=== PATIENT | male | born 1965 | race Caucasian/White ===

== ENCOUNTER 2019-05-01 10:31 | Outpatient (CLI) | payer OTHER | END 2019-05-01 23:59 | disposition home or self-care (01) | LOC: RAD 10:31 | PROVIDERS: ATTEND Nurse Practitioner Family | DX: M51.17 Intervertebral disc disorders with radiculopathy, lumbosacral region (principal); M48.07 Spinal stenosis, lumbosacral region; M89.38 Hypertrophy of bone, other site; G83.4 Cauda equina syndrome | CPT/HCPCS: 72148 ==

== ENCOUNTER 2019-05-19 14:37 | Outpatient (CLI) | payer OTHER ==
[~2019-05-19 14:37] MED LIST: CYCL-1 PO; HYDR-4384 PO
== END 2019-05-19 23:59 | disposition home or self-care (01) ==
LOC: RAD 14:37
PROVIDERS: ATTEND Orthopaedic Surgery Orthopaedic Surgery of the Spine
DX: M51.16 Intervertebral disc disorders with radiculopathy, lumbar region (principal); M48.07 Spinal stenosis, lumbosacral region; M41.86 Other forms of scoliosis, lumbar region; M53.3 Sacrococcygeal disorders, not elsewhere classified; M89.38 Hypertrophy of bone, other site
CPT/HCPCS: 72148

== ENCOUNTER 2019-06-17 12:55 | Observation (INO) | payer OTHER ==
[2019-06-15 14:46] LABS: BASOPHILS # (AUTO) 0.1 X10'3 (0-0.2); BASOPHILS % (AUTO) 0.9 % (0-1); EOSINOPHILS # (AUTO) 0.1 X10'3 (0-0.9); LYMPHOCYTES # (AUTO) 2.3 X10'3 (1.1-4.8); LYMPHOCYTES % (AUTO) 36.7 % (21-51); MEAN CORPUSCULAR HEMOGLOBIN 29.9 PG (27.0-31.0); MEAN CORPUSCULAR HGB CONC 33.5 g/dL (33.0-36.5); MEAN CORPUSCULAR VOLUME 89.2 FL (78-98); MONOCYTES # (AUTO) 0.4 X10'3 (0-0.9); MONOCYTES % (AUTO) 6.8 % (2-12); NEUTROPHILS # (AUTO) 3.4 X10'3 (1.8-7.7); NEUTROPHILS % (AUTO) 54.6 % (42-75); PRE OP HEMATOCRIT 44.7 % (42.0-52.0); PRE OP PLATELET COUNT 213 X10'3 (140-440); RED BLOOD COUNT 5.01 X10'6 (4.70-6.10); RED CELL DISTRIBUTION WIDTH 14.1 % (11.5-14.5)
[2019-06-15 14:53] LABS: CLARITY,URINE CLEAR (Clear); COLOR,URINE YELLOW (Yellow); GLUCOSE, URINE NEGATIVE (Neg); KETONES,URINE NEGATIVE (Neg); LEUKOCYTE ESTERASE ,URINE NEGATIVE (Neg); NITRITES, URINE NEGATIVE (Neg); OCCULT BLOOD,URINE NEGATIVE (Neg); PROTEIN,URINE NEGATIVE (Neg); UA COLLECTION TYPE CLN CATCH MIDSTREAM; UROBILINOGEN,URINE 0.2 E.U/dL (0.2-1.0)
[2019-06-15 14:57] LABS: PRE OP INR 1.1 INR; PRE OP PROTIME 10.9 SECONDS (9.0-12.0)
[2019-06-15 15:05] LABS: ALBUMIN 3.8 G/DL (3.4-5.0); ALBUMIN/GLOBULIN RATIO 1.1 (1.1-1.5); ALKALINE PHOSPHATASE 72 IU/L (46-116); BLOOD UREA NITROGEN 15 MG/DL (7-18); BUN/CREATININE RATIO 14.7 (5.4-32.0); CALCIUM 8.8 MG/DL (8.5-10.1); CHLORIDE 103 MMOL/L (99-107); CREATININE 1.02 MG/DL (0.60-1.10); PRE OP ALT 45 U/L (30-65); PRE OP ANION GAP 8 (8-16); PRE OP AST 16 U/L (10-37); PRE OP BILIRUB, TOTAL 0.2 MG/DL (0.0-1.0); PRE OP GLUCOSE 95 MG/DL (70-104); PRE OP POTASSIUM 4.1 MMOL/L (3.4-5.1); PRE OP SODIUM 140 MMOL/L (135-145); TOTAL CARBON DIOXIDE 29.2 MMOL/L (24-32); TOTAL PROTEIN 7.4 G/DL (6.4-8.2); eGFR 76 ML/MIN
[~2019-06-17] VITALS: Ht 170.2 cm; Wt 90.7 kg
[2019-06-17] VITALS (18 sets, daily range): BP systolic 91–163; BP diastolic 64–108
[~2019-06-17 12:55] MED LIST changes: -CYCL-1 PO; -HYDR-4384 PO; +LEVO175T2 PO
[2019-06-17] MEDS ORDERED: VANCOMYCIN INJ 1000 MG in NORMAL SALINE 250ml IV.SOLN IV ONE (13:00)
[2019-06-17] MEDS ORDERED: famotidine 20mg tablet PO ONE (13:00)
[2019-06-17] MEDS ORDERED: cefazolin/dext.iso 2gm/100 ML IV ONE (13:00)
[2019-06-17] MEDS ORDERED: ringers solution, lacted 1,000 ML IV SCH ×2 (13:00→16:43)
[2019-06-17] MEDS ORDERED: methylPREDNISolone sod succ 125mg/2ml vial ONE (13:33)
[2019-06-17] MEDS ORDERED: ceFAZolin 1000mg inj ONE (13:34)
[2019-06-17] MEDS ORDERED: gelatin sponge, absorbable (Gelfoam 100) sponge TP ONE ×2 (13:34→15:55)
[2019-06-17] MEDS ORDERED: Thrombin (Bovine) 5,000 unit vial TP ONE (13:34)
[2019-06-17] MEDS ORDERED: sevoflurane 250ml liquid IH ONE (15:01)
[2019-06-17] MEDS ORDERED: acetaminophen 1000 MG/100ml vial IV ONE (15:01)
[2019-06-17] MEDS ORDERED: fentaNYL /PF 50mcg/ml 5ml ampule ONE (15:04)
[2019-06-17] MEDS ORDERED: MIDAZolam 5mg/5ml vial ONE (15:04)
[2019-06-17] MEDS ORDERED: proCHLORperazine 10 MG/2 ml inj IV PRN (16:45)
[2019-06-17] MEDS ORDERED: ondansetron/PF 4mg/2ml inj IV PRN (16:45)
[2019-06-17] MEDS ORDERED: morphine 4 MG/ML inj SYRINge IV PRN ×2 (16:45)
[2019-06-17] MEDS ORDERED: meperidine/PF 25mg/ml syringe IV PRN ×3 (16:45)
[2019-06-17] MEDS ORDERED: BUPIVAcaine/PF 2.5 mg/ml (0.25%) 30ml vial ONE (17:20)
[2019-06-17] MEDS ORDERED: rocuronium 10mg/ml inj IV ONE (18:01)
[2019-06-17] MEDS ORDERED: glycopyrrolate 0.2mg/ml inj ONE (18:01)
[2019-06-17] MEDS ORDERED: neostigmine methylsulfate 1 MG/ML 10ml vial ONE (18:01)
[2019-06-17] MEDS ORDERED: dexamethasone sod phosphate 4mg/ml inj. ONE (18:02)
[2019-06-17] MEDS ORDERED: propofol inj 20 ML IV ONE ×3 (18:02)
[2019-06-17] MEDS ORDERED: ondansetron/PF 4mg/2ml inj ONE (18:02)
--- NOTE | 2019-06-17 18:10 | NUR ---
Received from OR via ORTHO BED , accompanied by Anesthesiologist DR LEBLANC and report given by Anesthesiolgist. PT PLACE ON O2 AND MONITOR, AROUSES EASILY, S/P LUMBAR 4-5 AND LUMBAR 5-S1 LAMINECTOMY, DISCECTOMY, GENERAL ANESTHESIA, RATES PAIN AT 3/10, HAS STRONG BILAT PLANTAR FLEXION, AND SLIGHTLY WEAKER LEFT DORSIFLEXTION, STATES HAS TINGLING IN LEFT GREAT TOE, AND MILD PAIN AT INCISION AREA, WILL CONT TO ASSESS.
[2019-06-17] MEDS ORDERED: diazepam 5mg tablet PO PRN (19:00)
[2019-06-17] MEDS ORDERED: acetaminophen 325mg tablet PO PRN (19:00)
[2019-06-17] MEDS ORDERED: CADD PCA waste documentation MC SCH (19:00)
[2019-06-17] MEDS ORDERED: naloxone 0.4 mg/ml inj IV PRN (19:00)
[2019-06-17] MEDS: HYDROmorphone/NS 1 mg/ml CADD 50 ML IV SCH ×3 (19:10→23:00)
--- NOTE | 2019-06-17 19:25 | NUR ---
Report called to receiving nurse. Transferred via ORTHO BED TO ROOM [id number] Belongings . Special Issues communicated to receiving nurse.
--- NOTE | 2019-06-17 20:05 | NUR ---
Received from OR via ORTHO BED , accompanied by Anesthesiologist DR LEBLANC and report given by Anesthesiolgist. PT AROUSES EASILY, PLACED ON O2 AND MONITOR, S/P ORIF LEFT HIP, SAB WITH VERY SMALL AMOUNT OF PROPOFOL TO KEEP PT "STILL", PT IS TRYING TO SIT UP IN BED AND WIGGLE AROUND, SIDE RAILS UP X4, REPEATED ATTEMPTS TO EXPLAIN TO PT IMPORTANCE OF TRYING TO REMAIN CALM, PT STATING, "GET ME OUT OF THIS PLACE SO I CAN GET SOMETHING TO EAT! I'M HUNGRY!", LEFT LATERAL THIGH DRESSING PRESENTS WITH SOME SANGUINOUS DRAINAGE, O.R. NURSE IN TO REINFORCE DRESSING. WILL CONT TO ASSESS. PT DOES KEEP PULLING AT ALL HIS LEADS AND WIRES, AND O2 MASK, WILL TRY A BEST ATTEMPT TO KEEP THEM ON.
--- NOTE | 2019-06-17 21:17 | NUR ---
PLEASE DISREGUARD 2005 ENTRY DOCUMANTATION MEANT FOR DIFFERENT PT
[2019-06-17] MEDS: normal saline 1000ml 1,000 ML IV SCH (23:07)
[2019-06-18] MEDS: HYDROmorphone/NS 1 mg/ml CADD 50 ML IV SCH ×3 (01:00→05:00)
[2019-06-18 02:00] VITALS: BP 119/76
[2019-06-18 02:46] VITALS: BP 119/76
[2019-06-18] MEDS: normal saline 1000ml 1,000 ML IV SCH (04:45)
[2019-06-18 06:10] VITALS: BP 133/83
[2019-06-18] MEDS ORDERED: HYDROcodone/acetaminophen 10/325mg tab PO PRN ×2 (06:45)
[2019-06-18] MEDS ORDERED: levoTHYROXINE 175mcg tablet PO SCH (07:00)
[2019-06-18 10:00] VITALS: BP 137/78
== END 2019-06-18 10:15 | disposition home or self-care (01) ==
LOC: PAS 12:55 → ORTHO 4S 21:01
PROVIDERS: ADMIT Orthopaedic Surgery Orthopaedic Surgery of the Spine; ATTEND Orthopaedic Surgery Orthopaedic Surgery of the Spine
DX: M51.36 Other intervertebral disc degeneration, lumbar region (principal); M51.26 Other intervertebral disc displacement, lumbar region; M51.17 Intervertebral disc disorders with radiculopathy, lumbosacral region; M21.372 Foot drop, left foot; G89.29 Other chronic pain; E03.9 Hypothyroidism, unspecified
CPT/HCPCS: 36415; 63048; 71046; 72100; 76000; 80053; 81003; 82948; 84443; 85025; 85610; 85730; 86885; 86900; 86901; 93005; 96374; 96375; 97110; 97116; 97161; 97530; 99284; G0378; J0131; J0690; J1100; J1170; J1644; J2175; J2250; J2405; J2704; J2710; J2930; J3010; J3370; J3490; J7030; J7120; A4215; A4618; A6196; A7000

== ENCOUNTER 2019-09-06 23:20 | Emergency (ER) | payer OTHER ==
[~2019-09-06] VITALS: Ht 170.2 cm; Wt 86.0 kg
[~2019-09-06 23:20] MED LIST changes: +LIDOcaine 1% 30ml preserv. free vial ONE
[2019-09-07] MEDS ORDERED: TETanus/Pertussis (Acell)/Diphther VAC/PF (Tdap-Adult) 0.5ml syringe IM ONE (00:50)
[2019-09-07 01:03] VITALS: BP 117/78
== END 2019-09-07 01:04 | disposition home or self-care (01) ==
LOC: ER 23:21
DX: S61.012A Laceration without foreign body of left thumb without damage to nail, initial encounter (principal); E03.9 Hypothyroidism, unspecified; G89.29 Other chronic pain; Z79.899 Other long term (current) drug therapy; W29.0XXA Contact with powered kitchen appliance, initial encounter; Y93.89 Activity, other specified; Y92.89 Other specified places as the place of occurrence of the external cause; Y99.9 Unspecified external cause status
CPT/HCPCS: 64450; 90471; 99284; J2001

== ENCOUNTER 2021-09-04 08:37 | Outpatient (CLI) | payer BC, OTHER ==
[~2021-09-04 08:37] MED LIST changes: -LIDOcaine 1% 30ml preserv. free vial ONE
== END 2021-09-04 23:59 | disposition home or self-care (01) ==
LOC: RAD 08:37
PROVIDERS: ATTEND Nurse Practitioner Family
DX: S43.431A Superior glenoid labrum lesion of right shoulder, initial encounter (principal); M94.211 Chondromalacia, right shoulder; M19.011 Primary osteoarthritis, right shoulder; M47.812 Spondylosis without myelopathy or radiculopathy, cervical region; M48.02 Spinal stenosis, cervical region; M51.27 Other intervertebral disc displacement, lumbosacral region; M48.07 Spinal stenosis, lumbosacral region; X58.XXXA Exposure to other specified factors, initial encounter; Y93.89 Activity, other specified; Y92.89 Other specified places as the place of occurrence of the external cause; Y99.8 Other external cause status
CPT/HCPCS: 72141; 72148; 73221